=== PATIENT | female | born 1970 | race Caucasian/White ===

== ENCOUNTER 2017-04-20 08:32 | Inpatient (IN) | payer OTHER ==
[~2017-04-20] VITALS: Ht 162.6 cm; Wt 90.0 kg
[~2017-04-20 08:32] MED LIST: ALPR0.5T3 PO; LISI-360 PO; SERT-132 PO; TAB-TAB PO
[2017-04-20 08:34] VITALS: BP 172/83; PULSE 113; RESP 15; TEMP 99.3; O2SAT 99
[2017-04-20 08:53] VITALS: O2SAT 98
[2017-04-20] MEDS ORDERED: ESCI20TA PO (08:55)
[2017-04-20] MEDS ORDERED: REDCAP2 PO (08:55)
[2017-04-20 08:56] VITALS: BP 178/84; PULSE 109; RESP 18; O2SAT 98
--- NOTE | 2017-04-20 08:59 | PD ---
HPI Chief Complaint: Abdominal Pain Time Seen by Provider: 08:48 Travel History International Travel<30 days: No Contact w/Intl Traveler<30days: No Traveled to known affect area: No History of Present Illness HPI 46-year-old female presents with epigastric abdominal pain that developed yesterday after she had breakfast. She states that it got worse as the day progressed. When she went home she made herself throw up and developed diarrhea. She states that now the pain has moved to her right lower abdomen. She denies any other concurrent complaints. Quality is intermittent and sharp. She states the pain was worse after she ate in the morning. She denies other modifying factors. She states she continued to make herself throw up because she thought that would make herself feel better. PFSH Past Medical History Anxiety: Yes Cancer: No Cardiovascular Problems: Yes (HEART MURMER, OCCASIONAL PALPITATIONS) High Cholesterol: Yes Diabetes: No Genitourinary: No Hepatitis: No Hiatal Hernia: No Hypertension: Yes Immune Disorder: No Neurologic: No Psychiatric: Yes (ANXIETY) Reproductive: No Respiratory: No Thyroid Disease: Yes (CYSTS ON THYROID) Tetanus Vaccination: Unknown Influenza Vaccination: No ?: Not Past Surgical History Abdominal Surgery: No Body Medical Devices: BILATERAL BREAST Section: Yes (X2) Ear Surgery: No Eye Surgery: No Genitourinary Surgery: No Gynecologic Surgery: Yes (2 C SECTION, PARTIAL HYSTERECTOMY) Hysterectomy: Yes Joint Replacement: No Oral Surgery: No Pacemaker: No Thoracic Surgery: Yes (BREAST AUGMENTATION) Social History Alcohol Use: Yes (ONCE A MONTH) Tobacco Use: No Substance Use: No Allergies-Medications (Allergen,Severity, Reaction): Coded Allergies: morphine (Unverified Allergy, Severe, Nausea/Vomiting, 04/16/17) Reported Meds & Prescriptions Reported Meds & Active Scripts Active Reported Red Yeast Rice (Red Yeast Rice Extract) 600 Mg Cap 1,200 Mg PO DAILY Escitalopram (Escitalopram Oxalate) 20 Mg Tab 20 Mg PO DAILY Alprazolam 0.5 Mg Tab 0.25 Mg PO DAILY PRN Lisinopril 10 mg (Lisinopril) 10 Mg Tab 10 Mg PO DAILY Review of Systems Except as stated in HPI: all other systems reviewed are Neg Physical Exam Narrative GENERAL: Well-nourished, well-developed patient. Well-appearing SKIN: Warm and dry. HEAD: Normocephalic and atraumatic. EYES: No injection or drainage. ENT: No nasal drainage noted. NECK: Supple, trachea midline. CARDIOVASCULAR: Regular rate and rhythm RESPIRATORY: No increased effort. No accessory muscle use. GASTROINTESTINAL: Abdomen soft, mild tender right mid lateral abdomen, nondistended. NEUROLOGICAL: Awake and alert. Moves all extremities. Normal speech. Data Data Last Documented VS Vital Signs Date Time Temp Pulse Resp B/P Pulse Ox O2 Delivery O2 Flow Rate FiO2 04/20/17 08:56 109 18 178/84 98 Room Air 04/20/17 08:34 99.3 Orders Complete Blood Count With Diff (04/20/17 08:49) Comprehensive Metabolic Panel (04/20/17 08:49) Lipase (04/20/17 08:49) Iv Access Insert/Monitor (04/20/17 08:49) Oximetry (04/20/17 08:49) Urinalysis - C+S If Indicated (04/20/17 08:55) Ct Abd/Pel W Iv Contrast(Rout) (04/20/17 ) Iohexol 350 Inj (Omnipaque 350 Inj) (04/20/17 10:26) Admit Order (Ed Use Only) (04/20/17 10:56) Piperacil-Tazo 3.375 Gm Premix (Zosyn 3. (04/20/17 11:00) Diet Npo (04/20/17 Lunch) Labs Laboratory Tests Test 04/20/17 04/20/17 08:58 09:00 Urine Color YELLOW Urine Turbidity CLEAR Urine pH 6.0 Urine Specific [place] 1.029 Urine Protein 30 mg/dL Urine Glucose (UA) NEG mg/dL Urine Ketones NEG mg/dL Urine Occult Blood NEG Urine Nitrite NEG Urine Bilirubin NEG Urine Urobilinogen 2.0 MG/DL Urine Leukocyte Esterase NEG Urine RBC LESS THAN 1 /hpf Urine WBC 1 /hpf Urine Squamous Epithelial 1 /hpf Cells Urine Mucus MOD /lpf Microscopic Urinalysis Comment CULT NOT INDICATED White Blood Count 10.4 TH/MM3 Red Blood Count 4.60 MIL/MM3 Hemoglobin 12.6 GM/DL Hematocrit 38.2 % Mean Corpuscular Volume 82.9 FL Mean Corpuscular Hemoglobin 27.4 PG Mean Corpuscular Hemoglobin 33.0 % Concent Red Cell Distribution Width 13.5 % Platelet Count 217 TH/MM3 Mean Platelet Volume 9.1 FL Neutrophils (%) (Auto) 83.5 % Lymphocytes (%) (Auto) 10.8 % Monocytes (%) (Auto) 5.3 % Eosinophils (%) (Auto) 0.1 % Basophils (%) (Auto) 0.3 % Neutrophils # (Auto) 8.7 TH/MM3 Lymphocytes # (Auto) 1.1 TH/MM3 Monocytes # (Auto) 0.6 TH/MM3 Eosinophils # (Auto) 0.0 TH/MM3 Basophils # (Auto) 0.0 TH/MM3 CBC Comment DIFF FINAL Differential Comment Sodium Level 137 MEQ/L Potassium Level 3.6 MEQ/L Chloride Level 106 MEQ/L Carbon Dioxide Level 24.3 MEQ/L Anion Gap 7 MEQ/L Blood Urea Nitrogen 10 MG/DL Creatinine 0.73 MG/DL Estimat Glomerular Filtration 86 ML/MIN Rate Random Glucose 103 MG/DL Calcium Level 8.3 MG/DL Total Bilirubin 0.7 MG/DL Aspartate Amino Transf 9 U/L (AST/SGOT) Alanine Aminotransferase 17 U/L (ALT/SGPT) Alkaline Phosphatase 83 U/L Total Protein 7.3 GM/DL Albumin 3.8 GM/DL Lipase 104 U/L MDM Medical Decision Making Medical Screen Exam Complete: Yes Emergency Medical Condition: Yes Medical Record Reviewed: Yes (past history confirmed) Interpretation(s) CBC & BMP Diagram 04/20/17 09:00 Last 24 hours Impressions Abdomen/Pelvis CT 04/20/17 0000 Signed Impressions: Service Date/Time: Saturday, April 20, 2017 10:11 - CONCLUSION: 1. Appendix is mildly prominent with wall enhancement and slight inflammatory changes. This is consistent with early appendicitis. Small fluid collection intimately associated with the cecum or at the base of the appendix measuring 3.4 cm could be small abscess. 2. Hepatic low-density likely benign. Juan Pablo Gregory MD Differential Diagnosis Kidney stone, appendicitis, pancreatitis, gastroenteritis Narrative Course Will check blood work, urinalysis, CT scan and reevaluate. Pain medication declined on initial exam Patient updated about CT. Agrees to admission with discussion with surgeon Physician Communication Physician Communication dr moraes states to keep npo, agrees to zosyn and states full admit on his service Diagnosis Primary Impression: Appendicitis Qualified Code: K35.80 - Acute appendicitis, unspecified acute appendicitis type Admitting Information Admitting Physician Requests: Admit Blaire Bernal MD Apr 20, 2017 08:59
[2017-04-20 09:16] LABS: AUTOMATED NEUTROPHIL # 8.7 TH/MM3 (1.8-7.7); BASOPHIL % 0.3 % (0.0-2.0); EOSINOPHIL % 0.1 % (0.0-4.0); HEMATOCRIT 38.2 % (35.0-46.0); HEMO FLAGS DIFF FINAL; LYMPH % 10.8 % (9.0-44.0); LYMPHOCYTE # 1.1 TH/MM3 (1.0-4.8); MEAN CELL VOLUME 82.9 FL (80.0-100.0); MEAN CORPUSCULAR HEMOGLOBIN 27.4 PG (27.0-34.0); MONO % 5.3 % (0.0-8.0); NEUT % 83.5 % (16.0-70.0); PLATELET COUNT 217 TH/MM3 (150-450); RED CELL DISTRIBUTION WIDTH 13.5 % (11.6-17.2); WHITE BLOOD COUNT 10.4 TH/MM3 (4.0-11.0)
[2017-04-20 09:25] LABS: BLOOD, URINE NEG (NEG); COMMENT (UR) CULT NOT INDICATED; CULTURE IF INDICATED CULT NOT INDICATED; GLUCOSE,URINE NEG (NEG); KETONE, URINE NEG (NEG); MUCUS URINE MOD /lpf (OCC); NITRITE,URINE NEG (NEG); SQUAMOUS EPITHELIAL CELL URINE 1 /hpf (0-5); URINE COLOR YELLOW (YELLW/STRAW)
[2017-04-20 09:33] LABS: ANION GAP 7 MEQ/L (5-15); AST (GOT) 9 U/L (15-37); BICARBONATE 24.3 MEQ/L (21.0-32.0); BLOOD UREA NITROGEN 10 MG/DL (7-18); CHLORIDE 106 MEQ/L (98-107); GLOMERULAR FILTRATION RATE 86 ML/MIN (>89); POTASSIUM 3.6 MEQ/L (3.5-5.1); SODIUM (NA) 137 MEQ/L (136-145)
[2017-04-20 09:34] LABS: ALT (GPT) 17 U/L (10-53)
[2017-04-20 09:36] LABS: ALKALINE PHOSPHATASE 83 U/L (45-117); TOTAL BILIRUBIN ADULT 0.7 MG/DL (0.2-1.0)
[2017-04-20] MEDS ORDERED: IOHEXOL 350 MG/ML 10 ML VIAL (for RAD DIAG) IV ONE (10:26)
--- NOTE | 2017-04-20 10:40 | RADRPT ---
EXAM DATE/TIME: 04/20/2017 10:11 [facility] COMPARISON: No previous studies available for comparison. INDICATIONS : Epigastric pain that radiates to right lower quadrant, nausea, vomiting, diarrhea. IV CONTRAST: 97 cc Omnipaque 350 (iohexol) IV ORAL CONTRAST: No oral contrast ingested. RADIATION DOSE: 12.66 CTDIvol (mGy) MEDICAL HISTORY : Cardiovascular disease. Hypertension. SURGICAL HISTORY : Hysterectomy. section.Lumbar laminectomy, breast augmentation. ENCOUNTER: Initial ACUITY: 1 day PAIN SCALE: 7/10 LOCATION: epigastric. TECHNIQUE: Volumetric scanning of the abdomen and pelvis was performed. Using automated exposure control and ad justment of the mA and/or kV according to patient size, radiation dose was kept as low as reasonably achievable to obtain optimal diagnostic quality images. DICOM format image data is available electro nically for review and comparison. FINDINGS: LOWER LUNGS: The visualized lower lungs are clear. LIVER: Homogeneous density without lesion. There is no dilation of the biliary tree. No calcified gallston es. Hepatic low-density measuring 1 cm. SPLEEN: Normal size without lesion. PANCREAS: Within normal limits. KIDNEYS: Normal in size and shape. There is no mass, stone or hydronephrosis. ADRENAL GLANDS: Within normal limits. VASCULAR: There is no aortic aneurysm. BOWEL/MESENTERY: The stomach, small bowel, and colon demonstrate no acute abnormality. The appendix is slightly promin ent measuring 1 cm in thickness. There is some slight inflammatory changes in some wall enhancement. There is a small fluid collection at the base of the appendix/cecum measuring 3.4 cm. Small lymph nod es are seen within the right lower quadrant. There is no free intraperitoneal air or fluid. ABDOMINAL WALL: Within normal limits. RETROPERITONEUM: There is no lymphadenopathy. BLADDER: No wall thickening or mass. REPRODUCTIVE: Uterus is absent. INGUINAL: There is no lymphadenopathy or hernia. MUSCULOSKELETAL: Within normal limits for patient age. CONCLUSION: 1. Appendix is mildly prominent with wall enhancement and slight inflammatory changes. This is consis tent with early appendicitis. Small fluid collection intimately associated with the cecum or at the b ase of the appendix measuring 3.4 cm could be small abscess. 2. Hepatic low-density likely benign. Juan Pablo Gregory MD on April 20, 2017 at 10:33 Board Certified Radiologist. This report was verified electronically.
[2017-04-20] MEDS ORDERED: PIPERACIL-TAZO 3.375 GM PREMIX 50 ML IV ONE (11:00)
--- NOTE | 2017-04-20 11:51 | MH ---
cc: HARDEEP ACUÑA M.D. DATE OF ADMISSION: 04/20/2017 DATE OF : 1970 REASON FOR ADMISSION Appendicitis with abscess HISTORY This is a 46-year-old female who began experiencing abdominal pain approximately 10:00 a.m. on, 04/19/2017. She states the pain was sharp and located epigastrium as a day progressed the pain worsened and moved to the right lower quadrant. She had known nausea induced vomiting. No change in bowel habits or urinary symptoms, no fevers or chills or chest pain or shortness of breath. PAST MEDICAL HISTORY: Past medical history significant for anxiety and hypertension. PAST SURGICAL HISTORY Significant for x2 As well as hysterectomy. ALLERGIES MORPHINE MEDICATIONS: At home include; Lisinopril Alprazolam Escitalopram SOCIAL HISTORY: She does not smoke. She drinks alcohol occasionally. FAMILY HISTORY Noncontributory. REVIEW OF SYSTEMS Review of systems significant for above. All other 10-point review negative. PHYSICAL EXAMINATION: IN GENERAL: On exam she is laying in a stretcher in no acute distress. HEAD, EYES, EARS, NOSE, AND THROAT: Pupils are equal and reactive. Her trachea is midline. LUNGS: Respirations clear. CARDIOVASCULAR SYSTEM: cardiovascular was regular. GASTROINTESTINAL: Soft, rounded, positive tenderness in the right lower quadrant. No peritoneal signs. MUSCULOSKELETAL: No deformities. NEUROLOGIC: Nonfocal. LABORATORY FINDINGS: The patient's white blood cell count of 10.4. Neutrophils of 83. RADIOLOGIC: Radiological images CT of the abdomen and pelvis revealed dilated appendix with surrounding inflammation and fluid. ASSESSMENT This is a patient with acute appendicitis with abscess. The patient will be taken to the operating room for laparoscopic appendectomy. PLAN: Risks and benefits explained to include but not be exclusive to infection, bleeding, bowel injury, bladder injury, ureter injury, technical aspects explained as well as raji and postoperative course. The patient verbalized understanding and consent was obtained. The patient will be given antibiotics and will proceed to operating room. MD EUGENIO Geller/morgan /11:25 AM /11:42 AM
[2017-04-20] MEDS ORDERED: LACTATED RINGER'S 1000 ML INJ 2,000 ML IV ONE (12:00)
[2017-04-20] MEDS ORDERED: NEOSTIGMINE 3 MG/3 ML SYR IV ONE (12:00)
[2017-04-20] MEDS ORDERED: ONDANSETRON HCL 4 MG/2 ML VIAL IV PUSH ONE (12:00)
[2017-04-20] MEDS ORDERED: PROPOFOL 200 MG/20 ML AMP IV ONE (12:00)
[2017-04-20] MEDS ORDERED: KETOROLAC TROMETHAMINE 60 MG/2 ML (IM) VIAL IM ONE (12:00)
[2017-04-20] MEDS ORDERED: fentaNYL CITRATE 250 MCG/5 ML AMP ONE (12:31)
[2017-04-20] MEDS ORDERED: ACETAMINOPHEN 1000 MG/100 ML VIAL IV ONE (12:31)
[2017-04-20] MEDS ORDERED: FAMOTIDINE 20 MG/2 ML VIAL ONE (12:32)
[2017-04-20] MEDS ORDERED: APREPITANT 40 MG CAP ONE (12:32)
[2017-04-20] MEDS ORDERED: BUPIVACAINE/EPINEPHRINE 0.25% 50 ML VIAL ONE (12:38)
[2017-04-20] MEDS ORDERED: Post-op Orders (for Pharmacy) MISC XX ONE (14:15)
[2017-04-20] MEDS ORDERED: HYDROmorphone HCL PF 1 MG/ML VIAL IV PRN (14:15)
[2017-04-20] MEDS ORDERED: ACETAMINOPHEN/HYDROcodone 325 MG/5 MG TAB PO PRN ×2 (14:15)
[2017-04-20] MEDS ORDERED: SODIUM CHLORIDE 0.9% FLUSH 10 ML FLUSH IV FLUSH PRN (14:15)
[2017-04-20] MEDS ORDERED: DO NOT ADM ANY ANTICOAGULANT DRUGS PRN (14:30)
[2017-04-20] MEDS: SODIUM CHLOR 0.9% 1000 ML INJ 1,000 ML IV SCH ×2 (14:30→22:02)
[2017-04-20 16:00] VITALS: BP 118/61; PULSE 82; RESP 17; TEMP 98.5; O2SAT 95
[2017-04-20] MEDS: ONDANSETRON HCL 4 MG/2 ML VIAL IV PRN (17:55)
[2017-04-20 20:00] VITALS: BP 123/63; PULSE 75; RESP 16; TEMP 97.4; O2SAT 97
[2017-04-20] MEDS: PIPERACIL-TAZO 3.375 GM PREMIX 50 ML IV SCH (20:39)
[2017-04-20] MEDS: SODIUM CHLORIDE 0.9% FLUSH 10 ML FLUSH IV FLUSH SCH (20:39)
[2017-04-20] MEDS: DOCUSATE SODIUM 100 MG CAP PO SCH (20:40)
[2017-04-21] VITALS: BP 117/56; PULSE 70; RESP 16; TEMP 96.5; O2SAT 94
[2017-04-21] MEDS: ONDANSETRON HCL 4 MG/2 ML VIAL IV PRN (00:12)
[2017-04-21 04:00] VITALS: BP 113/56; PULSE 76; RESP 16; TEMP 97; O2SAT 95
[2017-04-21] MEDS: PIPERACIL-TAZO 3.375 GM PREMIX 50 ML IV SCH ×2 (04:51→11:10)
--- NOTE | 2017-04-21 05:36 | MP ---
cc: JUAN PERRY DATE OF : 1970 DATE OF OPERATION 04/20/2017 PREOPERATIVE DIAGNOSIS Acute appendicitis POSTOPERATIVE DIAGNOSIS Acute appendicitis PROCEDURE Laparoscopic appendectomy. SURGEON Juan Perry MD. ANESTHESIA General endotracheal anesthesia ESTIMATED BLOOD LOSS Scant FINDINGS Acutely inflamed appendix. No evidence of surrounding abscess. SPECIMEN Appendix COMPLICATIONS None OPERATION The patient was brought to the operating room, placed on the operating table in supine position. Bilateral sequential inflation device placed on lower extremities. General anesthesia instituted. Mart catheter placed. The abdomen was prepped and draped sterilely. The infraumbilical region anesthetized with 0.25% Marcaine with epinephrine. A skin incision was made, 5 mm OptiVu port placed under direct vision and pneumoperitoneum created. Under direct vision a 5 mm suprapubic port and a 12-mm left lower quadrant port was placed. Prior to placement of all ports the skin and peritoneum anesthetized with 0.25% Marcaine with epinephrine. The patient is placed in Trendelenburg position right side up. The appendix was found to be retrocecal. The tip was brought into view. The mesoappendix was adhesed to the peritoneum and this was taken down using the harmonic scalpel. The appendix appeared to be folded on itself. It was decided to amputate the appendix at the base. This was performed using an endovascular stapler. The mesoappendix was then using the harmonic scalpel including the appendiceal vessel. There was some oozing in the mesentery. This was controlled with hemoclips. The pelvis was then irrigated with copious amounts of saline. The appendix removed from the peritoneal cavity in an Endopouch through the 12 mm port site. The fascia at the 12 mm port site approximated with 0 Vicryl using the fascial closure device. CO2 was released, all ports were removed. All skin incisions were closed with 4-0 Monocryl. The abdominal wall was cleaned and sterile dressing placed. The patient was awakened and taken to recovery room. MD EUGENIO Geller/VIOLET /2:09 PM /5:09 AM
[2017-04-21 05:42] VITALS: O2SAT 92
[2017-04-21] MEDS: DOCUSATE SODIUM 100 MG CAP PO SCH (07:35)
[2017-04-21] MEDS: SODIUM CHLOR 0.9% 1000 ML INJ 1,000 ML IV SCH (07:36)
[2017-04-21] MEDS: SODIUM CHLORIDE 0.9% FLUSH 10 ML FLUSH IV FLUSH SCH (07:46)
[2017-04-21 08:00] VITALS: BP 128/67; PULSE 60; RESP 17; TEMP 97.7; O2SAT 95
[2017-04-21] MEDS ORDERED: ACETAMINOPHEN 325 MG TAB ONE (11:05)
[2017-04-21 12:00] VITALS: BP 112/62; PULSE 73; RESP 17; TEMP 97.5; O2SAT 97
[2017-04-21] MEDS ORDERED: ACETAMINOPHEN 325 MG TAB PO PRN (15:00)
[2017-04-21 16:00] VITALS: BP 131/60; PULSE 66; RESP 17; TEMP 97.4; O2SAT 97
[2017-04-21] MEDS ORDERED: DIFL150T PO (16:17)
[2017-04-21] MEDS ORDERED: ZOFR4SOL PO (16:18)
[2017-04-21] MEDS ORDERED: PERC5TAB12 PO (16:18)
--- NOTE | 2017-04-21 16:20 | HHI.PR ---
Subjective Subjective Notes no cp no sob pos flatus Objective Vitals/I&O Vital Signs Date Time Temp Pulse Resp B/P (MAP) Pulse Ox O2 Delivery O2 Flow Rate FiO2 04/21/17 16:00 97.4 66 17 131/60 (83) 97 04/21/17 10:45 21 04/20/17 14:30 Room Air Abdomen: Non-distended Extremities: Perfused Wound Wound : Wound Location: Abdomen Appearance: Clean & Dry A/P Assessment and Plan s/p lap appy doing well d/c home Juan Perry MD Apr 21, 2017 16:20
== END 2017-04-21 17:06 | disposition home or self-care (01) | DRG 343 ==
LOC: NEPC 08:32 → NEDA 10:58 → N07B 14:49
PROVIDERS: ADMIT Surgery; ATTEND Surgery
PROC: 0DTJ4ZZ Resection of Appendix, Percutaneous Endoscopic Approach (ICD-10-PCS; principal; 2017-04-20 12:52)
DX: K35.80 Unspecified acute appendicitis (principal); I10 Essential (primary) hypertension; E78.00 Pure hypercholesterolemia, unspecified; F41.9 Anxiety disorder, unspecified; Z90.710 Acquired absence of both cervix and uterus; R01.1 Cardiac murmur, unspecified
CPT/HCPCS: 74177; 80053; 81001; 83690; 85025; 88304; 94150; J0131; J1885; J2405; J2543; J2710; J3010; J7030; J7120; J8501; Q9967